=== PATIENT | female | born 1980 | race Caucasian/White ===

== ENCOUNTER 2023-11-20 03:23 | Emergency (ER) | payer BC, SELFPAY ==
[2023-11-20 03:26] VITALS: BP 194/121; PULSE 75; RESP 18; TEMP 36.7; O2SAT 100
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
[2023-11-20 03:32] VITALS: RESP 18
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
[2023-11-20] MEDS: Omnipaque 350 MG/ML 100 ML BTL IJ (03:52)
[2023-11-20] MEDS: Normal Saline - Diluent 50 ML VIAL IJ (03:53)
[2023-11-20] MEDS: MORPHine 4 MG/ML SYR IVP (03:54)
[2023-11-20] MEDS: ACETAMINOPHEN 1,000 MG/100 ML BTL 400 MG IVPB (03:54)
[2023-11-20] MEDS: Normal Saline Flush 10 ML SYR IVP (03:54)
[2023-11-20 03:55] LABS: Bilirubin Negative (Negative); Blood Negative (Negative); Clarity Clear (Clear); Glucose Negative (Negative); Ketones Negative (Negative); Leukocyte Esterase Negative (Negative); Nitrite Negative (Negative); Specific Gravity <= 1.005 (1.005-1.025); Urobilinogen 0.2 mg/dL (Up to 0.2)
[2023-11-20] MEDS: Ondansetron 4 MG/2 ML VIAL IVP (03:55)
[2023-11-20 03:57] LABS: Abs Immature Grans 0.02 10^3/uL (0.0-0.06); Absolute Basophil Count 0.07 10^3/uL (0.0-0.2); Absolute Eosinophil Count 0.42 10^3/uL (0.0-0.7); Absolute Monocyte Count 0.44 10^3/uL (0.1-0.8); Absolute Neutrophil Count 4.48 10^3/uL (1.2-6.7); Basophils % 0.9; Eosinophils % 5.1; HCT 37.5 % (36.0-46.0); Immature Grans % 0.2; MCH 27.9 pg (27.0-33.0); MCHC 34.7 % (32.0-36.0); MCV 81 fL (80-95); MPV 9.5 fL (8.0-11.0); Monocytes % 5.3; Neutrophils % 54.5; Platelet Count 300 10^3/uL (130-400); RBC 4.66 10^6/uL (3.93-5.22); RDW 12.5 % (11.7-14.6); RDW-SD 36.3 fL; WBC 8.23 10^3/uL (4.4-10.8)
[2023-11-20 04:12] LABS: ALT 19 U/L (14-59); AST 19 U/L (15-37); Albumin 3.9 g/dL (3.4-5.0); Alkaline Phosphatase 114 U/L (46-116); Anion Gap 5.7 mmol/L (3-11); BUN 5 mg/dL (7-18); Bilirubin, Total 0.2 mg/dL (0.2-1.0); CO2 29.3 mmol/L (21.0-32.0); CREATININE 0.8 mg/dL (0.55-1.02); Calcium 9.3 mg/dL (8.5-10.1); Chloride 104 mmol/L (98-107); Estimated GFR 93.12 (mL/min/1.73m2); Glucose 128 mg/dL (74-106); Potassium 3.1 mmol/L (3.5-5.1); Sodium 139 mmol/L (136-145); Total Protein 7.2 g/dL (6.4-8.2)
[2023-11-20 04:14] LABS: ETHANOL BLOOD < 3.0 mg/dL (<10)
[2023-11-20 05:05] LABS: Lipase 33 U/L (16-77)
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
[2023-11-20] MEDS: Potassium Chloride 20 MEQ TABCR 40 MEQ PO (05:45)
== END 2023-11-20 05:56 | disposition home or self-care (01) ==
PROVIDERS: Emergency Provider Student in an Organized Health Care Education/Training Program
DX: S70.02XA Contusion of left hip, initial encounter (principal); E87.6 Hypokalemia; I10 Essential (primary) hypertension; E03.9 Hypothyroidism, unspecified; V47.5XXA Car driver injured in collision with fixed or stationary object in traffic accident, initial encounter
CPT/HCPCS: 74177; 80053; 83690; 96374; 96375; 99285; 70450; 71260; 72125; 72128; 72131; 73700; 80320; 81003; 85025; 99284; J0131; J2270; J2405; J3490